=== PATIENT | male | born 1985 | race Caucasian/White ===

== ENCOUNTER 2022-08-29 07:39 | Emergency (ER) | payer SELFPAY ==
[2022-08-29] MEDS ORDERED: ACETAMINOPHEN 500 MG TAB ONE (08:40)
[2022-08-29] MEDS ORDERED: dexAMETHasone 10 MG/ML VIAL ONE (08:40)
[2022-08-29 09:32] LABS: SARS-COV-2 RT PCR NEGATIVE (NEGATIVE)
--- NOTE | 2022-08-29 10:11 | ER ---
Nurse's Notes [facility] Name: Jomar Wong Age: 36 yrs Sex: Male : 1985 Arrival Date: 08/29/2022 Time: 07:41 Bed Treatment Private MD: Diagnosis: Influenza due to identified novel influenza A virus Presentation: 08/29 08:34 Chief complaint: Patient states: flu symptoms X 1 day. Coronavirus screen: Client iw presents with at least one sign or symptom that may indicate coronavirus-19. Ebola Screen: Patient negative for fever greater than or equal to 101.5 degrees Fahrenheit, and additional compatible Ebola Virus Disease symptoms Patient denies exposure to infectious person. Patient denies travel to an Ebola-affected area in the 21 days before illness onset. No symptoms or risks identified at this time. Initial Sepsis Screen: Does the patient meet any 2 criteria? No. Patient's initial sepsis screen is negative. Does the patient have a suspected source of infection? No. Patient's initial sepsis screen is negative. Risk Assessment: Do you want to hurt yourself or someone else? Patient reports no desire to harm self or others. Onset of symptoms was August 28, 2022. 08:34 Method Of Arrival: Ambulatory iw 08:34 Acuity: AROLDO 4 iw Historical: - Allergies: 09:24 Codeine; iw 09:24 PENICILLINS; iw - Family history:: not pertinent. Vital Signs: 09:24 BP 108 / 69; Pulse 89; Resp 16; Temp 97.9; Pulse Ox 100% on R/A; iw ED Course: 07:41 Patient arrived in ED. rg4 07:50 Nicanor Walls MD is Attending Physician. rt 08:16 Rafaela Serrano RN is Primary Nurse. iw 08:28 COVID-19/FLU A+B Sent. iw 08:35 Triage completed. iw Administered Medications: 09:03 Drug: Decadron (dexamethasone) 10 mg Route: IM; Site: right deltoid; iw 09:35 Follow up: Response: No adverse reaction iw 09:03 Drug: Tylenol 1000 mg Route: PO; iw 09:35 Follow up: Response: No adverse reaction iw Outcome: 10:11 Discharge ordered by MD. rt 10:31 Patient left the ED. iw Signatures: Rafaela Serrano RN RN Juli Hart rg4 Nicanor Walls, MD rt
--- NOTE | 2022-08-29 10:11 | EDPHYS ---
Physician Documentation [facility] Name: Jomar Wong Age: 36 yrs Sex: Male : 1985 Arrival Date: 08/29/2022 Time: 07:41 Bed Treatment Private MD: ED Physician Nicanor Walls HPI: 08/29 08:14 This 36 yrs old Male presents to ER via Unassigned with complaints of Cough, Fever, rt Body Aches. 08:14 Onset: The symptoms/episode began/occurred 1 month(s) ago. Severity of symptoms: At rt their worst the symptoms were mild. Modifying factors: The symptoms are alleviated by nothing, the symptoms are aggravated by Lying flat. Associated signs and symptoms: Pertinent positives: fever, rhinorrhea, sore throat. Patient states that he has had cough, congestion for about 1 week, worsening over the past few days. He reports a fever, intermittently relieved with Tylenol. Denies dyspnea, or acute complaints at this time, symptoms are mild in severity, no other aggravating or alleviating factors.. Historical: - Allergies: 09:24 Codeine; iw 09:24 PENICILLINS; iw - Family history:: not pertinent. ROS: 08:14 Constitutional: Negative for fever, chills, and weight loss, Eyes: Negative for injury, rt pain, redness, and discharge, Cardiovascular: Negative for chest pain, palpitations, and edema, Abdomen/GI: Negative for abdominal pain, nausea, vomiting, diarrhea, and constipation, Skin: Negative for injury, rash, and discoloration, Neuro: Negative for headache, weakness, numbness, tingling, and seizure, Psych: Negative for depression, anxiety, suicide ideation, homicidal ideation, and hallucinations. 08:14 ENT: Positive for rhinorrhea, sore throat. 08:14 Respiratory: Positive for cough, Negative for shortness of breath. Exam: 08:14 Constitutional: This is a well developed, well nourished patient who is awake, alert, rt and in no acute distress. Head/Face: Normocephalic, atraumatic. Neck: Trachea midline, no thyromegaly or masses palpated, and no cervical lymphadenopathy. Supple, full range of motion without nuchal rigidity, or vertebral point tenderness. No Meningismus. Chest/axilla: Normal chest wall appearance and motion. Nontender with no deformity. No lesions are appreciated. Cardiovascular: Regular rate and rhythm with a normal S1 and S2. No gallops, murmurs, or rubs. Normal PMI, no JVD. No pulse deficits. Respiratory: Lungs have equal breath sounds bilaterally, clear to auscultation and percussion. No rales, rhonchi or wheezes noted. No increased work of breathing, no retractions or nasal flaring. Abdomen/GI: Soft, non-tender, with normal bowel sounds. No distension or tympany. No guarding or rebound. No evidence of tenderness throughout. Neuro: Awake and alert, GCS 15, oriented to person, place, time, and situation. Cranial nerves II-XII grossly intact. Motor strength 5/5 in all extremities. Sensory grossly intact. Cerebellar exam normal. Normal gait. Psych: Awake, alert, with orientation to person, place and time. Behavior, mood, and affect are within normal limits. 08:14 ENT: Posterior pharyngeal erythema without exudates or tonsillar hypertrophy, uvula is midline. Vital Signs: 09:24 BP 108 / 69; Pulse 89; Resp 16; Temp 97.9; Pulse Ox 100% on R/A; iw MDM: 08:06 Patient medically screened. rt 10:18 Differential Diagnosis: Bronchitis Influenza Upper Respiratory Infection Pharyngitis rt Allergic Rhinitis. Data reviewed: vital signs, nurses notes, lab test result(s). ED course: Patient presents to the ED with cough, congestion, rhinorrhea. Vital signs are stable, patient is nontoxic, well-appearing with no respiratory distress. Found to be fluid positive, no further work-up is indicated at this time, patient stable for outpatient care.. 08/29 08:07 Order name: COVID-19/FLU A+B; Complete Time: 10:06 rt Administered Medications: 09:03 Drug: Decadron (dexamethasone) 10 mg Route: IM; Site: right deltoid; iw 09:35 Follow up: Response: No adverse reaction iw 09:03 Drug: Tylenol 1000 mg Route: PO; iw 09:35 Follow up: Response: No adverse reaction iw Disposition Summary: 08/29/22 10:11 Discharge Ordered Location: Home rt Problem: new rt Symptoms: are unchanged rt Condition: Stable rt Diagnosis - Influenza due to identified novel influenza A virus rt Followup: rt - With: Private Physician - When: 5 - 6 days - Reason: Discharge Instructions: - Discharge Summary Sheet jmm - Influenza, Adult, [id number] rt Forms: - Medication Reconciliation Form rt - Work release form em1 - Thank You Letter rt - Antibiotic Education rt - Prescription Opioid Use rt Prescriptions: - albuterol sulfate 90 mcg/actuation Inhalation HFA aerosol inhaler - inhale 2 puff by INHALATION route every 6 hours; 1 Pump; Refills: 0, Product jmm Selection Permitted - Prednisone 20 mg Oral Tablet - take 2 tablets by ORAL route once daily for 5 days; 10 tablet; Refills: 0, rt Product Selection Permitted Signatures: Dispatcher [employer] Rafaela Orlando, ARNOLD RN Nicanor Nelson MD MD rt
[2022-08-29 10:36] VITALS: BP 108/69; TEMP 97.9; O2SAT 100
== END 2022-08-29 10:31 | disposition home or self-care (01) ==
LOC: ER 07:39
DX: J10.1 Influenza due to other identified influenza virus with other respiratory manifestations (principal); Z20.822 Contact with and (suspected) exposure to COVID-19; Z88.0 Allergy status to penicillin; Z88.5 Allergy status to narcotic agent
CPT/HCPCS: 0240U; 96372; 99283; J1100

== ENCOUNTER 2023-08-28 07:22 | Emergency (ER) | payer SELFPAY ==
[2023-08-28 08:21] LABS: SARS-CoV-2 Antigen Rapid Res Negative (Negative)
--- NOTE | 2023-08-28 08:48 | ER ---
Nurse's Notes [facility] Name: Jomar Wong Age: 37 yrs Sex: Male : 1985 Arrival Date: 08/28/2023 Time: 07:22 Bed 12 Private MD: Diagnosis: Acute upper respiratory infection, unspecified;Fever, unspecified;Cough Presentation: 08/28 07:30 Chief complaint: Patient states: fever, chills, congestion since yesterday , was iw exposed to the flu last week. Coronavirus screen: Client presents with at least one sign or symptom that may indicate coronavirus-19. Ebola Screen: Patient negative for fever greater than or equal to 101.5 degrees Fahrenheit, and additional compatible Ebola Virus Disease symptoms Patient denies exposure to infectious person. Patient denies travel to an Ebola-affected area in the 21 days before illness onset. Initial Sepsis Screen: Does the patient meet any 2 criteria? No. Patient's initial sepsis screen is negative. Does the patient have a suspected source of infection? No. Patient's initial sepsis screen is negative. Risk Assessment: Do you want to hurt yourself or someone else? Patient reports no desire to harm self or others. Onset of symptoms was August 27, 2023. 07:30 Method Of Arrival: Ambulatory iw 07:30 Acuity: AROLDO 4 iw Historical: - Allergies: 07:31 Codeine; iw 07:31 PENICILLINS; iw - Home Meds: 07:31 None [Active]; iw - PMHx: 07:31 None; iw - Immunization history:: Adult Immunizations. - Social history:: Smoking status: Patient denies any tobacco usage or history of. - Family history:: not pertinent. Vital Signs: 07:30 BP 139 / 90; Pulse 75; Resp 16; Temp 97.8; Pulse Ox 100% on R/A; Weight 95.25 kg; iw Height 5 ft. 6 in. ; 07:30 Body Mass Index 33.89 (95.25 kg, 167.64 cm) iw ED Course: 07:25 Patient arrived in ED. mg5 07:31 Triage completed. iw 07:31 Arm band placed on. iw 07:33 Rafaela Serrano RN is Primary Nurse. iw 07:34 Patricio Story MD is Attending Physician. josselin Administered Medications: 09:02 Drug: AZITHromycin PO 500 mg PO once Route: PO; iw Outcome: 08:47 Discharge ordered by MD. schwab 09:05 Patient left the ED. iw Signatures: Patricio Story MD MD cha Williams, Irene, RN RN Migdalia Rutledge mg5
--- NOTE | 2023-08-28 08:48 | EDPHYS ---
Physician Documentation [facility] Name: Jomar Wong Age: 37 yrs Sex: Male : 1985 Arrival Date: 08/28/2023 Time: 07:22 Bed 12 Private MD: ROSY Physician Patricio Story HPI: 08/28 08:39 This 37 yrs old Male presents to ER via Ambulatory with complaints of Flu josselin Symptoms. 08:39 The patient or guardian reports cough, flu symptoms, arthralgias, low-grade fever, josselin myalgias. Onset: The symptoms/episode began/occurred 2 day(s) ago. Modifying factors: The symptoms are alleviated by nothing. the symptoms are aggravated by nothing. The patient or guardian reports airway noise. Severity of symptoms: At their worst the symptoms were mild, moderate, in the emergency department the symptoms are unchanged. Associated signs and symptoms: The patient has no apparent associated signs or symptoms. Modifying factors: The symptoms are alleviated by cool environment. Severity of symptoms: At their worst the symptoms were moderate in the emergency department the symptoms have improved mildly. The patient has not experienced similar symptoms in the past. Historical: - Allergies: 07:31 Codeine; iw 07:31 PENICILLINS; iw - Home Meds: 07:31 None [Active]; iw - PMHx: 07:31 None; iw - Immunization history:: Adult Immunizations. - Social history:: Smoking status: Patient denies any tobacco usage or history of. - Family history:: not pertinent. ROS: 08:39 Constitutional: Negative for fever, chills, and weight loss, Eyes: Negative for injury, josselin pain, redness, and discharge, ENT: Negative for injury, pain, and discharge, Neck: Negative for injury, pain, and swelling, Cardiovascular: Negative for chest pain, palpitations, and edema, Abdomen/GI: Negative for abdominal pain, nausea, vomiting, diarrhea, and constipation, Back: Negative for injury and pain, : Negative for injury, bleeding, discharge, and swelling, MS/Extremity: Negative for injury and deformity, Skin: Negative for injury, rash, and discoloration, Neuro: Negative for headache, weakness, numbness, tingling, and seizure, Psych: Negative for depression, anxiety, suicide ideation, homicidal ideation, and hallucinations, Allergy/Immunology: Negative for hives, rash, and allergies, Endocrine: Negative for neck swelling, polydipsia, polyuria, polyphagia, and marked weight changes, Hematologic/Lymphatic: Negative for swollen nodes, abnormal bleeding, and unusual bruising, 08:39 Respiratory: Positive for cough, "sounds productive", Exam: 08:39 Constitutional: This is a well developed, well nourished patient who is awake, alert, josselin and in no acute distress. Head/Face: Normocephalic, atraumatic. Eyes: Pupils equal round and reactive to light, extra-ocular motions intact. Lids and lashes normal. Conjunctiva and sclera are non-icteric and not injected. Cornea within normal limits. Periorbital areas with no swelling, redness, or edema. ENT: Nares patent. No nasal discharge, no septal abnormalities noted. Tympanic membranes are normal and external auditory canals are clear. Oropharynx with no redness, swelling, or masses, exudates, or evidence of obstruction, uvula midline. Mucous membranes moist. Neck: Trachea midline, no thyromegaly or masses palpated, and no cervical lymphadenopathy. Supple, full range of motion without nuchal rigidity, or vertebral point tenderness. No Meningismus. Chest/axilla: Normal chest wall appearance and motion. Nontender with no deformity. No lesions are appreciated. Cardiovascular: Regular rate and rhythm with a normal S1 and S2. No gallops, murmurs, or rubs. Normal PMI, no JVD. No pulse deficits. Respiratory: Lungs have equal breath sounds bilaterally, clear to auscultation and percussion. No rales, rhonchi or wheezes noted. No increased work of breathing, no retractions or nasal flaring. Abdomen/GI: Soft, non-tender, with normal bowel sounds. No distension or tympany. No guarding or rebound. No evidence of tenderness throughout. Back: No spinal tenderness. No costovertebral tenderness. Full range of motion. Male : Normal genitalia with no discharge or lesions. Skin: Warm, dry with normal turgor. Normal color with no rashes, no lesions, and no evidence of cellulitis. MS/ Extremity: Pulses equal, no cyanosis. Neurovascular intact. Full, normal range of motion. Neuro: Awake and alert, GCS 15, oriented to person, place, time, and situation. Cranial nerves II-XII grossly intact. Motor strength 5/5 in all extremities. Sensory grossly intact. Cerebellar exam normal. Normal gait. Psych: Awake, alert, with orientation to person, place and time. Behavior, mood, and affect are within normal limits. Vital Signs: 07:30 BP 139 / 90; Pulse 75; Resp 16; Temp 97.8; Pulse Ox 100% on R/A; Weight 95.25 kg; iw Height 5 ft. 6 in. ; 07:30 Body Mass Index 33.89 (95.25 kg, 167.64 cm) iw MDM: 07:34 Patient medically screened. josselin 08:44 Differential diagnosis: obstructed airway, tracheal injury, bronchitis, flu, URI. josselin Antibiotic administration: The patient is discharged and will get outpatient antibiotics, Zithromax. Differential Diagnosis: Bronchitis Influenza Upper Respiratory Infection Sinusitis Pharyngitis Viral Syndrome Pneumonia. Data reviewed: vital signs, nurses notes, lab test result(s), Flu: negative. Consideration of Admission/Observation Escalation of care including admission/observation considered. Independent interpretation of the following test(s) in the Emergency Department. Test considered but Not performed: Labs: no cbcx, comp met. Care significantly affected by the following chronic conditions: none. 08/28 07:31 Order name: Flu; Complete Time: 08:28 08/28 07:31 Order name: SARS RAPID; Complete Time: 08:28 Administered Medications: 09:02 Drug: AZITHromycin PO 500 mg PO once Route: PO; iw Disposition Summary: 08/28/23 08:47 Discharge Ordered Notes: Location: Home josselin Problem: new josselin Symptoms: have improved josselin Condition: Stable josselin Diagnosis - Acute upper respiratory infection, unspecified josselin - Fever, unspecified josselin - Cough josselin Followup: josselin - With: Private Physician - When: 2 - 3 days - Reason: Recheck today's complaints, Continuance of care, Re-evaluation by your physician Discharge Instructions: - Discharge Summary Sheet josselin - Fever, Adult josselin - Upper Respiratory Infection, Adult josselin - Cool Mist Vaporizer josselin - Upper Respiratory Infection, Adult, [id number] josselin - Cough, Adult josselin - Fever, Adult, [id number] josselin Forms: - Medication Reconciliation Form josselin - Thank You Letter josselin - Antibiotic Education josselin - Prescription Opioid Use josselin - Patient Portal Instructions josselin - Leadership Thank You Letter josselin - Work release form Prescriptions: - Brittnee-D 12 Hour 60-120 mg Oral Tablet Sustained Release 12 hr - take 1 tablet ORAL route every 12 hours As needed; 30 tablet; Refills: 0, josselin Product Selection Permitted - Tessalon Perles 100 mg Oral capsule - take 2 capsule ORAL route every 8 hours As needed; 30 capsule; Refills: 0, josselin Product Selection Permitted - Medrol (Alexis) 4 mg Oral Tablets, Dose Pack - take 1 tablet ORAL route as directed - follow package instructions; 1 packet; josselin Refills: 0, Product Selection Permitted - Zithromax 500 mg Oral tablet - take 1 tablet ORAL route once daily for 5 days; 5 tablet; Refills: 0, Product josselin Selection Permitted Signatures: Dispatcher [employer] Patricio Villafuerte MD MD cha Williams, Irene, RN RN iw
[2023-08-28 09:12] VITALS: BP 139/90; TEMP 97.8; O2SAT 100
[2023-08-28] MEDS ORDERED: AZITHROMYCIN 250 MG TAB ONE (09:14)
== END 2023-08-28 09:05 | disposition home or self-care (01) ==
LOC: ER 07:22
DX: J06.9 Acute upper respiratory infection, unspecified (principal); R05.9 Cough, unspecified; Z11.52 Encounter for screening for COVID-19
CPT/HCPCS: 36415; 87804; 87811; 99282